=== PATIENT | male | born 1970 | race Caucasian/White ===

== ENCOUNTER 2022-04-21 14:10 | Emergency (ER) | payer BC ==
[~2022-04-21] VITALS: Ht 170.2 cm; Wt 70.0 kg
[2022-04-21] MEDS ORDERED: MAGNESIUM/ALUMINUM HYDROXIDE/SIMETHICONE 30ML UDC PO ONE (14:45)
[2022-04-21] MEDS ORDERED: FAMOTIDINE 20MG TABLET PO ONE (14:45)
[2022-04-21 15:50] LABS: BASOPHILS % 0.3 % (0.0-2.0); EOSINOPHILS % 1.2 % (0.0-5.0); HEMATOCRIT. 41.3 % (42.0-52.0); HEMOGLOBIN. 13.6 g/dL (14.0-18.0); LYMPHOCYTES % 11.7 % (20.0-50.0); MEAN CORPUSCULAR HEMOGLOBIN 30.6 pg (28.0-32.0); MEAN CORPUSCULAR VOLUME 92.9 fL (80.0-94.0); MEAN PLATELET VOLUME 9.1 fl (7.4-10.4); NEUTROPHILS % 79.8 % (40.0-76.0); PLATELET 166 x1000/uL (130-400); RED BLOOD CELL COUNT 4.45 mill/uL (4.7-6.1); RED CELL DISTRIBUTION WIDTH 13.4 % (11.6-14.6)
[2022-04-21 16:04] LABS: CHLORIDE 104 mEq/L (98-107)
[2022-04-21 16:15] VITALS: BP 112/75
[2022-04-21] MEDS ORDERED: HYDROCODONE/ACETAMINOPHEN 5/325MG TABLET PO NR (16:15)
[2022-04-21] MEDS ORDERED: FAMOTIDINE 20MG TABLET PO NR (16:15)
[2022-04-21] MEDS ORDERED: MAGNESIUM/ALUMINUM HYDROXIDE/SIMETHICONE 30ML UDC PO NR (16:15)
== END 2022-04-21 20:29 | disposition home or self-care (01) ==
LOC: ER 14:10
DX: R10.13 Epigastric pain (principal); R00.2 Palpitations
CPT/HCPCS: 36415; 71045; 76705; 80053; 83880; 84484; 85025; 93005; 99285

== ENCOUNTER 2022-08-14 14:34 | Emergency (ER) | payer BC ==
[~2022-08-14] VITALS: Ht 177.8 cm; Wt 73.0 kg
[2022-08-14] MEDS ORDERED: MECL-217 PO (14:40)
[2022-08-14] MEDS ORDERED: SERT25TA PO (14:40)
[2022-08-14] MEDS ORDERED: CLON0.5T PO (14:40)
[2022-08-14] MEDS ORDERED: SUCR1TAB30 PO (14:40)
[2022-08-14] MEDS ORDERED: KETOROLAC 30MG/ML VIAL IV STA (15:03)
[2022-08-14] MEDS ORDERED: LORAZEPAM 1MG TABLET PO ONE (15:15)
[2022-08-14] MEDS ORDERED: SODIUM CHLORIDE 0.9% 1,000 ML IV ONE (15:15)
[2022-08-14 15:30] LABS: BASOPHILS % 0.7 % (0.0-2.0); EOSINOPHILS % 2.6 % (0.0-5.0); HEMATOCRIT. 40.4 % (42.0-52.0); HEMOGLOBIN. 13.7 g/dL (14.0-18.0); LYMPHOCYTES % 23.9 % (20.0-50.0); MEAN CORPUSCULAR HEMOGLOBIN 30.8 pg (28.0-32.0); MEAN CORPUSCULAR VOLUME 90.8 fL (80.0-94.0); MONOCYTES % 6.6 % (2.0-8.0); NEUTROPHILS % 66.2 % (40.0-76.0); PLATELET 221 x1000/uL (130-400); RED BLOOD CELL COUNT 4.45 mill/uL (4.7-6.1); RED CELL DISTRIBUTION WIDTH 13.6 % (11.6-14.6)
[2022-08-14 15:36] LABS: CHLORIDE 101 mEq/L (98-107)
[2022-08-14] MEDS ORDERED: LORA-250 MT (18:20)
[2022-08-14 18:45] VITALS: BP 110/70
== END 2022-08-14 18:46 | disposition home or self-care (01) ==
LOC: ER 14:34
DX: R07.89 Other chest pain (principal); F41.9 Anxiety disorder, unspecified; R00.2 Palpitations; R06.02 Shortness of breath; I49.9 Cardiac arrhythmia, unspecified
CPT/HCPCS: 36415; 71045; 71275; 80053; 84484; 85025; 85379; 93005; 96361; 96374; 99285; J1885; J7030; Q9967

== ENCOUNTER 2022-08-24 09:36 | Emergency (ER) | payer BC ==
[~2022-08-24] VITALS: Ht 177.8 cm; Wt 72.0 kg
[~2022-08-24 09:36] MED LIST: CLON0.5T PO; LORA-250 MT; MECL-217 PO; SERT25TA PO; SUCR1TAB30 PO
[2022-08-24 11:30] LABS: HEMATOCRIT. 39.3 % (42.0-52.0); HEMOGLOBIN. 13.3 g/dL (14.0-18.0); LYMPHOCYTES % 32.1 % (20.0-50.0); MEAN CORPUSCULAR HEMOGLOBIN 30.9 pg (28.0-32.0); MEAN CORPUSCULAR VOLUME 91.5 fL (80.0-94.0); MONOCYTES % 9.7 % (2.0-8.0); NEUTROPHILS % 53.2 % (40.0-76.0); PLATELET 183 x1000/uL (130-400); RED CELL DISTRIBUTION WIDTH 13.7 % (11.6-14.6)
[2022-08-24 11:39] LABS: CHLORIDE 105 mEq/L (98-107)
[2022-08-24 12:40] VITALS: BP 112/73
== END 2022-08-24 12:57 | disposition home or self-care (01) ==
LOC: ER 09:36
DX: R00.2 Palpitations (principal); F41.9 Anxiety disorder, unspecified
CPT/HCPCS: 36415; 71045; 80053; 83880; 84484; 85025; 93005; 99285

== ENCOUNTER 2022-10-19 15:25 | Emergency (ER) | payer BC ==
[~2022-10-19] VITALS: Ht 177.8 cm; Wt 68.0 kg
[2022-10-19 15:33] VITALS: BP 116/78
[2022-10-19] MEDS ORDERED: KETOROLAC 60MG/2ML VIAL IM ONE (21:15)
[2022-10-19] MEDS ORDERED: IBUP-2029 MT (21:51)
[2022-10-19] MEDS ORDERED: CYCL10TA21 MT (21:51)
== END 2022-10-19 21:59 | disposition home or self-care (01) ==
LOC: ER 15:25
DX: R51.9 Headache, unspecified (principal); M79.18 Myalgia, other site; R00.0 Tachycardia, unspecified; F41.9 Anxiety disorder, unspecified; Z87.19 Personal history of other diseases of the digestive system
CPT/HCPCS: 93005; 96372; 99283; J1885

== ENCOUNTER 2022-12-12 14:05 | Emergency (ER) | payer BC ==
[~2022-12-12] VITALS: Ht 177.8 cm; Wt 74.0 kg
[~2022-12-12 14:05] MED LIST changes: +CYCL10TA21 MT; +IBUP-2029 MT
[2022-12-12] MEDS ORDERED: MAGNESIUM 1 G PREMIX 100 ML IV ONE (19:00)
[2022-12-12] MEDS ORDERED: SODIUM CHLORIDE 0.9% 1,000 ML IV ONE (19:00)
[2022-12-12] MEDS ORDERED: KETOROLAC 30MG/ML VIAL IV ONE (19:00)
[2022-12-12] MEDS ORDERED: KETOROLAC 30MG/ML VIAL IV SCH (21:30)
[2022-12-12 23:15] VITALS: BP 114/66
[2022-12-14] MEDS ORDERED: LINA290C PO (15:49)
== END 2022-12-12 23:30 | disposition home or self-care (01) ==
LOC: ER 14:37
DX: G43.909 Migraine, unspecified, not intractable, without status migrainosus (principal); F41.9 Anxiety disorder, unspecified; I49.9 Cardiac arrhythmia, unspecified
CPT/HCPCS: 96365; 96375; 99285; J1885; J3475; J7030; Z7610

== ENCOUNTER 2024-03-01 15:06 | Emergency (ER) | payer BC, OTHER ==
[~2024-03-01] VITALS: Ht 175.3 cm; Wt 74.8 kg
[~2024-03-01 15:06] MED LIST changes: -CLON0.5T PO; -CYCL10TA21 MT; -IBUP-2029 MT; +LINA290C PO; -LORA-250 MT
[2024-03-01 15:13] VITALS: O2SAT 99
[2024-03-01 16:30] VITALS: BP 121/75; PULSE 86; RESP 17; TEMP 98.5
[2024-03-01 16:31] LABS: BASOPHILS % 0.4 % (0.0-2.0); EOSINOPHILS % 0.8 % (0.0-5.0); HEMATOCRIT. 41.9 % (42.0-52.0); HEMOGLOBIN. 14.1 g/dL (14.0-18.0); LYMPHOCYTES % 20.2 % (20.0-50.0); MEAN CORPUSCULAR HEMOGLOBIN 31.2 pg (28.0-32.0); MEAN CORPUSCULAR HGB CONC 33.6 g/dL (31.0-37.0); NEUTROPHILS % 71.6 % (40.0-76.0); PLATELET 193 x1000/uL (130-400); RED BLOOD CELL COUNT 4.51 mill/uL (4.7-6.1); RED CELL DISTRIBUTION WIDTH 13.9 % (11.6-14.6); WHITE BLOOD COUNT 4.6 x1000/uL (4.5-11.0)
[2024-03-01 16:46] LABS: CHLORIDE 103 mEq/L (98-107); POTASSIUM 4.5 mEq/L (3.5-5.1); SODIUM 138 mEq/L (136-145)
[2024-03-01 16:47] LABS: CARBON DIOXIDE 31 mEq/L (21-32)
[2024-03-01 16:48] LABS: CALCIUM 9.5 mg/dL (8.7-10.4)
[2024-03-01 16:52] LABS: CREATININE 0.9 mg/dL (0.6-1.3); GLUCOSE 102 mg/dL (70-105); UREA NITROGEN BLOOD 14 mg/dL (9-23)
== END 2024-03-01 19:36 | disposition home or self-care (01) ==
LOC: ER 15:06
DX: R55 Syncope and collapse (principal); R53.1 Weakness; F41.9 Anxiety disorder, unspecified; G43.909 Migraine, unspecified, not intractable, without status migrainosus; I49.9 Cardiac arrhythmia, unspecified
CPT/HCPCS: 36415; 80048; 85025; 93005; 99284